=== PATIENT | female | born 1960 | race Two or more races ===

== ENCOUNTER 2021-07-17 14:03 | Outpatient (REF) | payer OTHER, SELFPAY ==
[2021-07-17 15:59] LABS: T4 Thyroxine 8.5 ug/dL (4.5-12.0)
[2021-07-17 16:22] LABS: Erythrocyte Sedimentation Rate 21 MM/HR (0-20)
[2021-07-19 02:06] LABS: T3 Uptake 30 % (22-35)
[2021-07-21 07:06] LABS: Aldolase 6.7 U/L (<=8.1)
== END 2021-07-17 14:04 | disposition home or self-care (01) ==
LOC: HO.LAB 14:03
PROVIDERS: PCP Registered Nurse; Visit Provider Psychiatry & Neurology Neurology
DX: G72.9 Myopathy, unspecified (principal)
CPT/HCPCS: 36415; 82085; 82550; 84436; 84443; 84479; 85652